=== PATIENT | female | born 1950 | race Caucasian/White ===

== ENCOUNTER → 2016-09-24 | Outpatient (CLI) | payer BC ==
[~2016-09-24] MED LIST: CITA20TA4 PO; PRM625 PO; SIMV20TA5 PO
--- NOTE | 2016-09-24 11:00 | DIAGNOSTIC IMAGING REPORT ---
RIGHT FOOT MIN 3 VIEWS ROUTINE CLINICAL HISTORY: 65 years-old Female presenting with RIGHT FOOT PAIN. TECHNIQUE: Frontal, oblique, and lateral views of the right foot were obtained. COMPARISON: None. FINDINGS: Osseous fragments along the lateral aspect of the calcaneocuboid articulation consistent with an os peroneum. Os naviculare also noted. No acute fracture, malalignment, or radiopaque foreign body. IMPRESSION: 1. No acute osseous injury of the right foot. Electronically signed by: Jack Adrian M.D. 09/24/2016 10:59 AM Dictated Date/Time: 09/24/2016 10:55 AM
== END | disposition home or self-care (01) ==
LOC: C.RAD1850 10:22
PROVIDERS: ATTEND Hospitalist
DX: S97.109A Crushing injury of unspecified toe(s), initial encounter (principal); X58.XXXA Exposure to other specified factors, initial encounter

== ENCOUNTER 2022-07-27 09:31 | Inpatient (IN) ==
[2022-07-27] MEDS ORDERED: HYDROmorphone INJ 0.5 MG/0.5 ML SYR IV PRN (10:30)
[2022-07-27] MEDS ORDERED: HYDROmorphone INJ 1 MG/ML SYRINGE IV PRN (10:30)
[2022-07-27] MEDS ORDERED: ONDANSETRON INJ 2 MG/ML 2 ML VIAL IV PRN ×2 (10:35→13:39)
--- NOTE | 2022-07-27 10:41 | History & Physical Report ---
Date of Service July 27, 2022 Assessment & Plan (1) RUQ pain: Plan: RUQ with meals, Suspected choledocholithiasis vs cholecystitis - OSH Labs: AST 91, ALT 193, Lipase 53, Sodium 142, Potassium 4.0, WBC 4.6, PLT 249, High-sensitivity troponin 9 -CTA/P: Multiple low-density lesions of the liver measuring up to 1.7cm in size without abnormalities of the spleen. Adrenals and pancreas are within normal limits. Mild prominence of the gallbladder wall and questionable gallbladder sludge. Given the discordance between the exam and an ultrasound performed same day as well as patient's exam, recommend consideration of HIDA for further evaluation. Small pericardial effusion. Multiple hepatic cysts. -Ultrasoundabdomen limited: Impression: Multiple cysts noted in the left lobe of the liver. Exam is otherwise unremarkable. - Images being pushed to [facility] for internal read, pending transfer On admission: WBC 3.77, AST 47, ALT 107, bili 0.6, Cr 0.85 - HIDA pending - Surgery consulted, GI consulted - Zofran for nausea, scaled hydromorphone region manager for pain control. APAP deferred 2/2 transaminitis - Received rocephin daily x2 at OSH, got 1 dose of rocephin AM prior to transfer - Lyme/anaplasmosis pending given concurrent transaminitis and leukopenia. HTN - losartan 100mg IMMIGRATION LAW SPECIALIST held x2 days while NPO. Hold pending survical eval. - Adequate BP control - Hydralazine 2.5mg Q6H PRN for SBP >180 Pericardial Effusion - Mild, without hemodynamic compromise. Noted on CT-A/P - No hx chest pain, recent viral illness per pt - Echo pending given hx of valvular disease and effusion with unclear hx and records pending - Hs trop normal IMMIGRATION LAW SPECIALIST Anxiety - Well controlled, no longer on celexa DVT PPx: SCDs pendin surgical evaluation CODE: Full Diet: NPO, IVFM 125cc/hr Dispo: Med/surg (2) HTN (hypertension): (3) Lumbar stenosis: (4) Valvular insufficiency: (5) Transaminitis: Admission and Anticipated Discharge Date Admission Date: July 27, 2022 History of Present Illness Primary Care Provider: Arthur Jackson MD Lisa is a 71-year-old female with past medical history of hyperlipidemia and anxiety/depression who presented to [facility] with abdominal pain and was found to have elevated LFTs. Lipase was normal. By verbal report CT was concerning for cholecystitis without ductal dilation, gallbladder ultrasound did not show ductal dilation and was equivocal. MRCP and additional diagnostics/therapeutics were not available at [facility]. Patient was transferred to [facility] for ERCP and surgical services for treatment of suspected choledocholithiasis without pancreatic involvement. Had had intermittent RUQ pain in the past year, but generally hasn't been bad up until this past Saturday. +Vomiting even without nausea. Food worsens pain. RUQ worst, has some LUQ pain. No fevers, chills, sweats No chest pain or chest pressure. No shortness of breath/dyspnea BMs soft, brown. No black/blood. No cristopher colored stools Has mild valvular insufficiency for which she sees Dr. Mchugh [facility] w/ Dr. Tanner. No KS. No NSTEMI. No hx NSTEMI. Had back surgery for spinal stenosis w/ Dr. Navarrete in [place] last Oct, no problems. NOt on any blood thinners or aspirin like medications No renal problems/CKD No history of blood clots or bleeding Hx bowel slowdown/blockage. Not sure the cause, no prior hx of abdominal surgery. partial SBO was 20 years ago, and resolved with conservative care and no surgery. Medical History: Reviewed Medications: Reviewed Surgical History: Reviewed Family history: Reviewed. Lung cancer in mother in 70s with hx of smoking. Denies hx KS/stroke/heart disease/lung disease/thyroid disease/gallbladder disease Allergies: Reviewed. NKMA. Social History: No tobacco use, rare social ETOH use Code Status:Full code [place] lab review: AST 91, ALT 193 Lipase 53 Sodium 142 Potassium 4.0 WBC 4.6, PLT 249 High-sensitivity troponin 9 CT/ultrasound as below -CTA/P: Multiple low-density lesions of the liver measuring up to 1.7cm in size without abnormalities of the spleen. Adrenals and pancreas are within normal limits. Mild prominence of the gallbladder wall and questionable gallbladder sludge. Given the discordance between the exam and an ultrasound performed same day as well as patient's exam, recommend consideration of HIDA for further evaluation. Small pericardial effusion. Multiple hepatic cysts. -Ultrasoundabdomen limited: Impression: Multiple cysts noted in the left lobe of the liver. Exam is otherwise unremarkable. Allergies Allergy/AdvReac Type Severity Reaction Status Date / Time No Known Allergies Allergy Unverified 05/26/12 14:53 Home Medications Medication Instructions Recorded Confirmed Type atorvastatin 40 mg tablet 40 mg PO DAILY 07/27/22 07/27/22 History losartan 100 mg tablet 100 mg PO DAILY 07/27/22 07/27/22 History Past Med/Surg History Medical History HTN (hypertension) Valvular insufficiency Surgical History Status post lumbar spine surgery for decompression of spinal cord due to spinal stenosis, w/ hardware placement. Done @ [place] Social History Smoking Status: Never smoker Second Hand Exposure: No; Do You Dip or Chew Tobacco: No; Tobacco Cessation Education Requested by Patient: No Hx Alcohol Use: No Hx Substance Use: No Preferred Language: Moldovan Communication Ability: Effective Dining Room Captain Required: No Beliefs That Will Affect Care: None Current Living Situation: Alone Other Information That Helps Us Care for You: No Feels Safe at Home: Yes Safety Concerns: Feels Safe At This Time Assistive Devices: Hearing Aid - Left Review of Systems Review of Systems: All systems reviewed & are unremarkable except as noted in HPI & below Physical Exam Physical Exam: General: A&Ox3. NAD. Cooperative. HEENT: Atraumatic, normocephalic. Vision/hearing grossly intact. Pulm: CTAB A&P. -wheezes, -rales, -rhonchi. Symmetrical chest rise. No increased work of breathing. No respiratory distress. Cardiac: RRR, +sm. Radial pulses intact and symmetrical. Abdominal: TTP at RUQ > LUQ, no lower abd tenderness, no guarding/rebound, abd soft. Code Status & VTE Plan VTE Prophylaxis Plan VTE Prophylaxis will be ordered: Yes PG Care Time/CCT Total # of Minutes Spent Total Time Spent with Patient: Total time spent is greater than 50% in coordination of care (as documented) at patient's floor/unit and/or counseling patient: Coding Level of Care Code 41245 INT INP/OBS CARE 2/55MIN Diagnoses RUQ pain R10.11 HTN (hypertension) I10 Lumbar stenosis M48.061 Valvular insufficiency I38 Transaminitis R74.01
[2022-07-27 11:09] LABS: Basophils # (auto) 0.06 K/uL (0-0.2); Basophils % (auto) 1.6 %; Eosinophils # (auto) 0.07 K/uL (0-0.50); Eosinophils % (auto) 1.9 %; Hematocrit (blood only) 41.4 % (37.0-47.0); Hemoglobin 13.3 g/dl (12.0-16.0); Immature Granulocytes # (auto) 0.01 K/uL (0.01-0.20); Immature Granulocytes % (auto) 0.3 %; Lymphocytes # (auto) 1.26 K/uL (1.2-3.4); Lymphocytes % (auto) 33.4 %; Mean Corpuscular Hemoglobin 29.5 pg (25.0-34.0); Mean Corpuscular Hgb Conc 32.1 g/dL (32.0-36.0); Mean Corpuscular Volume 91.8 fL (80.0-100.0); Mean Platelet Volume 10.1 fL (9.4-12.4); Monocytes # (auto) 0.33 K/uL (0.11-0.59); Monocytes % (auto) 8.8 %; Neutrophils # (auto) 2.04 K/uL (1.40-6.50); Platelet Count 272 K/uL (130-400); RDW Coefficient of Variation 12.7 % (11.5-14.5); RDW Standard Deviation 42.5 fL (36.4-46.3); Red Blood Count 4.51 M/uL (4.20-5.40); White Blood Count 3.77 K/ul (4.8-10.8)
[2022-07-27] MEDS ORDERED: PNEUMOCOCCAL POLYSACCHARIDES 25 MCG/0.5 ML VIAL/SYR IM ONE (11:15)
[2022-07-27 11:25] LABS: Albumin Globulin Ratio 1.8 (0.9-2); Albumin Level 4.1 gm/dl (3.4-5.0); BUN Creatinine Ratio 18.8 (10-20); Bilirubin,Total 0.6 mg/dl (0.2-1.0); Calcium 9.6 mg/dl (8.6-10.3); Est GFR (Non-African American) 69.9 ml/min; Globulin 2.3 gm/dl (2.5-4.0); Potassium 4.6 mmol/L (3.5-5.1); Total Protein 6.4 gm/dl (6.0-8.3)
[2022-07-27 11:36] LABS: Partial Thromboplastin Ratio 0.9; Partial Thromboplastin Time 24.5 Seconds (21.0-31.0); Prothrombin Time 10.9 Seconds (9.0-12.0)
--- NOTE | 2022-07-27 12:01 | Gastrointestinal Consultation ---
Date of Consultation July 27, 2022 Assessment & Plan (1) RUQ pain: 71 year old female with history of HTN, lumbar stenosis transferred from outside hospital for ERCP and general surgery evaluation. Thers is report of biliary sludge, AST/ALT elevation 47/107 w/ normal Tbili NPO Plan for EUS +/- ERCP IVF maintenance Analgesia PRN Antiemetics PRN We appreciate assistance in the management of any serological abnormality and corrections to include: hemoglobin >7, INR <2, platelets >50,000, potassium levels >3.5 but <5.3, and sodium levels within 5 points of the reference range prior to endoscopic evaluation. Thank you for allowing us to participate in the care of this patient. Please call with any acute changes, questions or concerns. Please see addendum below with additional recommendation from my supervising physician. Supervising Physician Co-Signing Physician Notes A was already EVALUATED THE PATIENT. WE WERE CONSULTED WITH A HISTORY OF ABDOMINAL DISCOMFORT AND MILD ELEVATION OF HER LIVER ASSOCIATED ENZYMES. UPPER ENDOSCOPY AND EUS with POSSIBLE ERCP have been requested DUE TO SUSPECTED CHOLEDOCHOLITHIASIS. The patient has a history of abdominal pain which has been waxing and waning for the past week. She was found to have evidence of cholelithiasis on imaging of her liver enzymes. Physical examination No scleral icterus Right upper quadrant tenderness noted Impression: Patient presents for evaluation of abdominal discomfort and nausea found to have elevated liver enzymes and cholelithiasis. Further evaluation for retained common bile duct stones has been requested. We will proceed with upper endoscopy endoscopic ultrasound and possible ERCP today. We have discussed the risks to include bleeding infection perforation pain pancreatitis and failed biliary cannulation. History of Present Illness Reason for Consultation: request for ERCP Requesting Physician: Zeeshan Attending Physician: Jack Byers MD History of Present Illness 71 year old female with history of HTN, lumbar stenosis transferred from outside hospital for ERCP and general surgery evaluation. Pt was seen evaluated, rajan treviewed. Family at bedside. She notes episode upper abd pain and RUQ pain x 1 year. However, this become persistent and severe about 4/5 days ago. Associated with food aversion, nausea/vomiting. Bilious emesis. No black or bloody emesis. No fever, chills, CP, SOB. Denies dark urine. Denies cristopher colored stools. CT at outside hospital reported as GB prominence and sludge ABD US from outside hospital reported as hepatic cysts She was ordered a MRCP and JOVAN Siddiqi personally cancelled MRCP. No ETOH No supplements No anticoagulations Tbili 0.6 AST 47 ALT 107 ALKP 80 Lipase 13 Allergies Allergy/AdvReac Type Severity Reaction Status Date / Time No Known Allergies Allergy Unverified 05/26/12 14:53 Home Medications Medication Instructions Recorded Confirmed Type atorvastatin 40 mg tablet 40 mg PO DAILY 07/27/22 07/27/22 History losartan 100 mg tablet 100 mg PO DAILY 07/27/22 07/27/22 History Patient History Medical History HTN (hypertension) Valvular insufficiency Surgical History Status post lumbar spine surgery for decompression of spinal cord due to spinal stenosis, w/ hardware placement. Done @ [place] Social History Smoking Status: Never smoker Second Hand Exposure: No; Do You Dip or Chew Tobacco: No; Tobacco Cessation Education Requested by Patient: No Hx Alcohol Use: No Hx Substance Use: No Preferred Language: Georgian Communication Ability: Effective Exhibit Carpenter Required: No Beliefs That Will Affect Care: None Current Living Situation: Alone Other Information That Helps Us Care for You: No Feels Safe at Home: Yes Safety Concerns: Feels Safe At This Time Assistive Devices: Hearing Aid - Left Review of Systems Review of Systems: All systems reviewed & are unremarkable except as noted in HPI & below Physical Exam Constitutional: WD/WN, vitals as above Respiratory: normal respiratory effort, lungs clear to auscultation Cardiovascular: RRR, no murmur, no edema Gastrointestinal (Abdomen): Inspection/Auscultation: abdomen normal to inspection and normal bowel sounds Percussion/Palpation: + abdomen tender (upper abd r>L) and abdomen soft Skin: no rashes, warm and dry Results & Data Vital Signs (Past 12 Hours) Vital Signs Temp Pulse Resp BP Pulse Ox O2 Del Method 07/27/22 10:31 36.6 C 69 16 154/79 H 97 Room Air 07/27/22 10:31 36.6 C 16 154/79 H 97 Room Air Laboratory Results 07/27/22 07/27/22 07/27/22 Range/Units 11:28 11:28 11:28 WBC (4.8-10.8) K/ul RBC (4.20-5.40) M/uL Hgb (12.0-16.0) g/dl Hct (37.0-47.0) % MCV (80.0-100.0) fL MCH (25.0-34.0) pg MCHC (32.0-36.0) g/dL RDW Std Deviation (36.4-46.3) fL RDW Coeff of Jackie (11.5-14.5) % Plt Count (130-400) K/uL MPV (9.4-12.4) fL Immature Gran % (Auto) % Neut % (Auto) % Lymph % (Auto) % [place] % (Auto) % Eos % (Auto) % Baso % (Auto) % Neut # (Auto) (1.40-6.50) K/uL Lymph # (Auto) (1.2-3.4) K/uL [place] # (Auto) (0.11-0.59) K/uL Eos # (Auto) (0-0.50) K/uL Baso # (Auto) (0-0.2) K/uL Immature Gran # (Auto) (0.01-0.20) K/uL PT (9.0-12.0) Seconds INR (0.9-1.1) APTT (21.0-31.0) Seconds PTT Ratio Sodium (136-145) mmol/L Potassium (3.5-5.1) mmol/L Chloride (98-107) mmol/L Carbon Dioxide (21-32) mmol/L Anion Gap (3-11) BUN (6-23) mg/dl Creatinine (0.6-1.2) mg/dl Est Cr Clr Drug Dosing ml/min Est GFR ( Amer) ml/min Est GFR (Non-Af Amer) ml/min BUN/Creatinine Ratio (10-20) Glucose (70-99(Fasting)) mg/dl Calcium (8.6-10.3) mg/dl Total Bilirubin (0.2-1.0) mg/dl AST (13-39) U/L ALT (7-52) U/L Alkaline Phosphatase (34-104) U/L Total Protein (6.0-8.3) gm/dl Albumin (3.4-5.0) gm/dl Globulin (2.5-4.0) gm/dl Albumin/Globulin Ratio (0.9-2) Lipase (11-82) U/L Anaplasma Smear Pending A. phagocytophilum DNA Pending Lyme Disease IgG Ab Pending Lyme Disease IgM Ab Pending 07/27/22 07/27/22 07/27/22 Range/Units 10:41 10:41 10:41 WBC 3.77 L (4.8-10.8) K/ul RBC 4.51 (4.20-5.40) M/uL Hgb 13.3 (12.0-16.0) g/dl Hct 41.4 (37.0-47.0) % MCV 91.8 (80.0-100.0) fL MCH 29.5 (25.0-34.0) pg MCHC 32.1 (32.0-36.0) g/dL RDW Std Deviation 42.5 (36.4-46.3) fL RDW Coeff of Jackie 12.7 (11.5-14.5) % Plt Count 272 (130-400) K/uL MPV 10.1 (9.4-12.4) fL Immature Gran % (Auto) 0.3 % Neut % (Auto) 54.0 % Lymph % (Auto) 33.4 % [place] % (Auto) 8.8 % Eos % (Auto) 1.9 % Baso % (Auto) 1.6 % Neut # (Auto) 2.04 (1.40-6.50) K/uL Lymph # (Auto) 1.26 (1.2-3.4) K/uL [place] # (Auto) 0.33 (0.11-0.59) K/uL Eos # (Auto) 0.07 (0-0.50) K/uL Baso # (Auto) 0.06 (0-0.2) K/uL Immature Gran # (Auto) 0.01 (0.01-0.20) K/uL PT 10.9 (9.0-12.0) Seconds INR 1.0 (0.9-1.1) APTT 24.5 (21.0-31.0) Seconds PTT Ratio 0.9 Sodium 141 (136-145) mmol/L Potassium 4.6 (3.5-5.1) mmol/L Chloride 110 H (98-107) mmol/L Carbon Dioxide 29 (21-32) mmol/L Anion Gap 2 L (3-11) BUN 16 (6-23) mg/dl Creatinine 0.85 (0.6-1.2) mg/dl Est Cr Clr Drug Dosing 69.0 ml/min Est GFR ( Amer) 81.0 ml/min Est GFR (Non-Af Amer) 69.9 ml/min BUN/Creatinine Ratio 18.8 (10-20) Glucose 95 (70-99(Fasting)) mg/dl Calcium 9.6 (8.6-10.3) mg/dl Total Bilirubin 0.6 (0.2-1.0) mg/dl AST 47 H (13-39) U/L ALT 107 H (7-52) U/L Alkaline Phosphatase 80 (34-104) U/L Total Protein 6.4 (6.0-8.3) gm/dl Albumin 4.1 (3.4-5.0) gm/dl Globulin 2.3 L (2.5-4.0) gm/dl Albumin/Globulin Ratio 1.8 (0.9-2) Lipase 13 (11-82) U/L Anaplasma Smear A. phagocytophilum DNA Lyme Disease IgG Ab Lyme Disease IgM Ab
--- NOTE | 2022-07-27 12:21 | Surgery Consultation ---
This case was discussed with the PA. I agree with the plan. Date of Consultation July 27, 2022 Assessment & Plan (1) RUQ pain: This is a 71yF with a PMH , HTN, valvular insufficiency and spinal surgery who presents to the [facility] as a transfer from [place] with concern for cholecystitis/?choledocholithiasis. Patient states she has been dealing with RUQ abdominal pain over the last week or so that has progressively been worsening, associated with nausea/vomiting. At [place] apparently she had an US that did not report on gallbladder abnormalities and a CT a/p that showed questionable gallbladder sludge. Today's labs show WBC 3.7, Tb:0.6, AST and ALT mildly elevated at 47 and 107 respectively. Vital signs are stable. On exam abdomen soft, non distended, with mild discomfort in the RUQ/epigastric regions. originally ordered for MRCP, but after GI evaluation they are planning on taking her today for ERCP. We will follow up on ERCP results prior to making a decision on surgical intervention. If ERCP negative can still consider HIDA scan at some point. Will follow. History of Present Illness Attending Physician: Jack Byers MD History of Present Illness This is a 71yF with a PMH , HTN, valvular insufficiency and spinal surgery who presents to the [facility] as a transfer from [place] with concern for cholecystitis/?choledocholithiasis. Patient states she has been dealing with RUQ abdominal pain over the last week or so that has progressively been worsening. Since the weekend she has developed nausea/vomiting after eating. She rates her pain a 5-6/10 at it's worst that is flared up with eating, but has been dealing with a constant pain despite that. At [place] apparently she had an US that did not report on gallbladder abnormalities and a CT a/p that showed questionable gallbladder sludge. Patient states the pain would happen after any meal, not specific to fatty/greasy foods. She currently denies any fevers/chills, CP/SOB, or change in bowel habits. She is feeling a bit better without nausea/vomiting and pain controlled not received any recent medications. PSH of . No history of alcohol use. Allergies Allergy/AdvReac Type Severity Reaction Status Date / Time No Known Allergies Allergy Unverified 05/26/12 14:53 Home Medications Medication Instructions Recorded Confirmed Type atorvastatin 40 mg tablet 40 mg PO DAILY 07/27/22 07/27/22 History losartan 100 mg tablet 100 mg PO DAILY 07/27/22 07/27/22 History Patient History Medical History HTN (hypertension) Valvular insufficiency Surgical History Status post lumbar spine surgery for decompression of spinal cord due to spinal stenosis, w/ hardware placement. Done @ [place] Social History Smoking Status: Never smoker Second Hand Exposure: No; Do You Dip or Chew Tobacco: No; Tobacco Cessation Education Requested by Patient: No Hx Alcohol Use: No Hx Substance Use: No Preferred Language: Bulgarian Communication Ability: Effective Director Of Business Development Required: No Beliefs That Will Affect Care: None Current Living Situation: Alone Other Information That Helps Us Care for You: No Feels Safe at Home: Yes Safety Concerns: Feels Safe At This Time Assistive Devices: Hearing Aid - Left Review of Systems Constitutional: no fever and no chills Respiratory: no dyspnea Cardiovascular: no chest pain Gastrointestinal: + abdominal pain (epigastric and RUQ), + nausea and + vomiting; no change in bowel habits Physical Exam Physical Exam: awake/alert Constitutional: well developed, well nourished and comfortable; no acute distress Respiratory: normal respiratory effort Cardiovascular: Rate/Rhythm: regular rate Gastrointestinal (Abdomen): Inspection/Auscultation: + abdominal surgical scar (midline infra-umbilical scar from ); abdomen not distended Percu ssion/Palpation: + abdomen tender (mild discomfort noted in the epigastric and RUQ regions) and abdomen soft; no guarding Results & Data Vital Signs (Past 12 Hours) Vital Signs Temp Pulse Resp BP Pulse Ox O2 Del Method 07/27/22 10:31 36.6 C 69 16 154/79 H 97 Room Air 07/27/22 10:31 36.6 C 16 154/79 H 97 Room Air PG Care Time/CCT Total # of Minutes Spent Total Time Spent with Patient: Total time spent is greater than 50% in coordination of care (as documented) at patient's floor/unit and/or counseling patient: Coding Level of Care Code 51973 INT INP/OBS CARE MIN Diagnoses RUQ pain R10.11
[2022-07-27 12:34] LABS: Lyme Ab IgG w/WB Rflx Negative (Negative)
[2022-07-27 12:38] LABS: Lyme Ab IgM w/WB Rflx Positive (Negative)
[2022-07-27] MEDS: PLASMA-LYTE A 1,000 ML IV SCH (12:41)
[2022-07-27] MEDS ORDERED: ATROPINE SULFATE 0.1 MG/ML 10ML SYR IV PRN (13:39)
[2022-07-27] MEDS ORDERED: PROMETHAZINE HCL 6.25 MG in SODIUM CHLORIDE 0.9% 50 ML IV PRN (13:39)
[2022-07-27] MEDS ORDERED: fentaNYL citrate PF 100 MCG/2 ML VIAL IV PRN (13:39)
[2022-07-27] MEDS ORDERED: ePHEDrine sulfate 50 MG/ML AMP IV PRN (13:39)
--- NOTE | 2022-07-27 13:39 | Anesthesiology Consultation ---
Date of Service July 27, 2022 Assessment & Plan Chart Review Chart Review: Acceptable Risk for Surgery and Patient NOT seen in Pre Admission Testing Consults Requested none ASA ASA2 Proposed Anesthesia Anesthesia Type: General Risk / Benefits Reviewed With: PT / POA / Parent / Guardian, Accepts Plan and Informed Consent Obtained History Surgery Operation Date: 07/27/22 11:30 Proposed Procedures p Endoscopic Retrograde Cholangiopancreato - Pooja Barnard, DO Height/Weight Height: 5 ft 7 in Weight: 82.5 kg Allergies Allergy/AdvReac Type Severity Reaction Status Date / Time No Known Allergies Allergy Unverified 05/26/12 14:53 Medications Home Medications Medication Instructions Recorded Confirmed Last Taken atorvastatin 40 mg tablet 40 mg PO DAILY 07/27/22 07/27/22 07/24/22 losartan 100 mg tablet 100 mg PO DAILY 07/27/22 07/27/22 07/24/22 Active Medications Generic Name Dose Route Start Last Admin Trade Name Freq PRN Reason Stop Dose Admin Parenteral Electrolytes 1,000 mls @ 125 mls/hr 07/27/22 10:30 07/27/22 12:41 Plasma-Lyte A Ph 7.4 IV 08/26/22 10:29 125 mls/hr .Q8H CONNOR Administration NPO Date Last Intake of Fluids: 07/26/22 Time Last Intake of Fluids: 21:00 Date Last Intake of Solids: 07/26/22 Time Last Intake of Solids: 21:00 Past Medical History Medical History HTN (hypertension) Valvular insufficiency Exercise / Class Metabolic Activity II 4-5 Yardwork/Stairs/Walk up hill Past Surgical History Surgical History Status post lumbar spine surgery for decompression of spinal cord due to spinal stenosis, w/ hardware placement. Done @ [place] Past Anesthesia History No Hx of Anesthesia Complications and No Family Hx of Anesthesia Complications History of PONV No Hx of PONV and No Hx of Motion Sickness Social History Smoking Status: Never smoker Do You Dip or Chew Tobacco: No Hx Alcohol Use: No Hx Substance Use: No Physical Exam Vital Signs Last Vital Signs Temp 36.6 C 07/27/22 13:13 Pulse 67 07/27/22 13:13 Resp 18 07/27/22 13:13 BP 168/88 H 07/27/22 13:13 Pulse Ox 100 07/27/22 13:13 O2 Del Method Room Air 07/27/22 13:13 ENMT Mouth: no dentition abnormality Thyromental Distance: > or= 3.5 Finger Breadths Mallampati Class: II Neck normal visual inspection Respiratory normal respiratory effort Auscultation: lungs clear to auscultation bilaterally Cardiovascular Rate/Rhythm: regular rate and regular rhythm Psychiatric Orientation: alert Testing Laboratory Results 07/27/22 10:41 07/27/22 10:41 PT 10.9 Seconds (9.0-12.0) 07/27/22 10:41 INR 1.0 (0.9-1.1) 07/27/22 10:41 APTT 24.5 Seconds (21.0-31.0) 07/27/22 10:41
[2022-07-27] MEDS ORDERED: PROPOFOL IV EMULSION 10 MG/ML 20 ML VIAL IV ONE (14:03)
[2022-07-27] MEDS ORDERED: fentaNYL citrate PF 100 MCG/2 ML VIAL ONE (14:04)
[2022-07-27] MEDS ORDERED: MIDAZOLAM HCL 1 MG/ML 2ML VIAL ONE (14:04)
--- NOTE | 2022-07-27 14:21 | GI REPORT ---
Patient Name: Lisa Alcala Procedure Date: 07/27/2022 2:14 PM Date of : 1950 Admit Type: Inpatient Age: 71 Gender: Female Attending MD: Pooja Barnard DO, Procedure: Upper GI endoscopy Providers: Pooja Barnard DO Referring MD: Jack Byers Iv, M.d. Indications: Epigastric abdominal pain, Abdominal pain in the right upper quadrant Medicines: Monitored Anesthesia Care Complications: No immediate complications. Estimated blood loss: Minimal. Estimated Blood Loss: Estimated blood loss was minimal. Procedure: Pre-Anesthesia Assessment: - Prior to the procedure, a History and Physical was performed, and patient medications, allergies and sensitivities were reviewed. The patient's tolerance of previous anesthesia was reviewed. - The risks and benefits of the procedure and the sedation options and risks were discussed with the patient. All questions were answered and informed consent was obtained. - Patient identification and proposed procedure were verified prior to the procedure by the physician, the nurse and the lute packer or applier. The procedure was verified in the procedure room. - Pre-procedure physical examination revealed no contraindications to sedation. - ASA Grade Assessment: II - A patient with mild systemic disease. - After reviewing the risks and benefits, the patient was deemed in satisfactory condition to undergo the procedure. - The anesthesia plan was to use monitored anesthesia care (MAC). - Immediately prior to administration of medications, the patient was re-assessed for adequacy to receive sedatives. - The heart rate, respiratory rate, oxygen saturations, blood pressure, adequacy of pulmonary ventilation, and response to care were monitored throughout the procedure. - The physical status of the patient was re-assessed after the procedure. After obtaining informed consent, the endoscope was passed under direct vision. Throughout the procedure, the patient's blood pressure, pulse, and oxygen saturations were monitored continuously. The Endoscope was introduced through the mouth, and advanced to the third part of duodenum. The upper GI endoscopy was accomplished without difficulty. The patient tolerated the procedure well. Findings: The examined esophagus was normal. The Z-line was regular and was found 37 cm from the incisors. The entire examined stomach was normal. The examined duodenum was normal. Impression: - Normal esophagus. - Z-line regular, 37 cm from the incisors. - Normal stomach. - Normal examined duodenum. - No specimens collected. Recommendation: - Perform an upper endoscopic ultrasound (UEUS) today. Pooja Barnard D.O. Pooja Barnard, DO 07/27/2022 2:20:49 PM This report has been signed electronically. Note Initiated On: 07/27/2022 2:14 PM Number of Addenda: 0 I attest to the content of the Intraoperative Record and orders documented therein, exceptions below {[id number]}
--- NOTE | 2022-07-27 14:38 | GI REPORT ---
Patient Name: Lisa Alcala Procedure Date: 07/27/2022 2:20 PM Date of : 1950 Admit Type: Inpatient Age: 71 Gender: Female Attending MD: Pooja Barnard DO, Procedure: Upper EUS Providers: Pooja Barnard DO Referring MD: Jack Byers Md Indications: Elevated liver enzymes, Suspected choledocholithiasis Medicines: Monitored Anesthesia Care Complications: No immediate complications. Estimated blood loss: Minimal. Estimated Blood Loss: Estimated blood loss was minimal. Procedure: Pre-Anesthesia Assessment: - Prior to the procedure, a History and Physical was performed, and patient medications, allergies and sensitivities were reviewed. The patient's tolerance of previous anesthesia was reviewed. - The risks and benefits of the procedure and the sedation options and risks were discussed with the patient. All questions were answered and informed consent was obtained. - Patient identification and proposed procedure were verified prior to the procedure by the physician, the nurse and the electromechanical equipment assembler. The procedure was verified in the procedure room. - Pre-procedure physical examination revealed no contraindications to sedation. - ASA Grade Assessment: II - A patient with mild systemic disease. - After reviewing the risks and benefits, the patient was deemed in satisfactory condition to undergo the procedure. - The anesthesia plan was to use monitored anesthesia care (MAC). - Immediately prior to administration of medications, the patient was re-assessed for adequacy to receive sedatives. - The heart rate, respiratory rate, oxygen saturations, blood pressure, adequacy of pulmonary ventilation, and response to care were monitored throughout the procedure. - The physical status of the patient was re-assessed after the procedure. After obtaining informed consent, the endoscope was passed under direct vision. Throughout the procedure, the patient's blood pressure, pulse, and oxygen saturations were monitored continuously. The Endosonoscope was introduced through the mouth, and advanced to the third part of duodenum. The upper EUS was accomplished without difficulty. The patient tolerated the procedure well. Findings: ENDOSONOGRAPHIC FINDING: : There was no sign of significant endosonographic abnormality in the ampulla. No pathologic lymphadenopathy and no masses were identified. Minimal hyperechoic material consistent with sludge was visualized endosonographically in the gallbladder. The gallbladder wall was mildly thickened to 2.5 mm. There was no sign of significant endosonographic abnormality in the common bile duct. The maximum diameter of the duct was 5 mm. No stones, no biliary sludge and ducts of normal caliber were identified. There was no sign of significant endosonographic abnormality in the visualized portion of the liver. Homogeneous parenchyma and no focal pathology were identified. There was no sign of significant endosonographic abnormality in the entire pancreas. The pancreatic duct measured up to 2 mm in diameter. No masses, no cysts. No lymphadenopathy seen. There was no sign of significant endosonographic abnormality in the left adrenal gland. No adrenal gland enlargement was identified. Impression: - There was no sign of significant pathology in the ampulla. - Hyperechoic material consistent with sludge was visualized endosonographically in the gallbladder. - There was no sign of significant pathology in the common bile duct. - There was no evidence of significant pathology in the visualized portion of the liver. - There was no sign of significant pathology in the entire pancreas. - Endosonographic images of the left adrenal gland were unremarkable. - No specimens collected. Recommendation: - [facility]. - Observe patient's clinical course. - Cholecystectomy per [facility]. Pooja Barnard D.O. Pooja Barnard, 07/27/2022 2:38:27 PM This report has been signed electronically. Note Initiated On: 07/27/2022 2:20 PM Number of Addenda: 0 I attest to the content of the Intraoperative Record and orders documented therein, exceptions below {[id number]}
--- NOTE | 2022-07-27 14:41 | Post Operative Brief Note ---
Immediate Post Op Note v1 Date of Surgery July 27, 2022 Pre & Post Diagnosis Operation Date: 07/27/22 11:30 Pre-Op Diagnosis: SUSPECT Choledocholithiasis Post-Op Diagnosis: normal upper endoscopy Normal common bile duct Normal pancreas mild gallbladder wall thickening / mild amount of gallbladder sludge I identified the patient and participated in the time-out.: Yes Procedure Operation Date: 07/27/22 11:30 Actual Procedures p Esophagogastroduodenoscopy - Pooja Barnard DO s Endoscopic Ultrasonography Upper - Pooja Barnard DO Surgeon Pooja Barnard DO Gate Supervisor none Estimated Blood Loss 0 Findings Consistent with Post-Op Diagnosis
--- NOTE | 2022-07-27 14:42 | Communication Note ---
Date of Service: July 27, 2022 The patient underwent upper endoscopy and endoscopic ultrasound this afternoon. The upper endoscopy was notable for no evidence of peptic ulcer disease. The endoscopic ultrasound was notable for a normal-appearing common bile duct and pancreas. There was a small amount of sludge and minimal gallbladder wall thickening to 2.5 mm. Recommendations general surgery to evaluate patient to determine if they need cholecystectomy Call with questions or concerns GI to sign off
[2022-07-27] MEDS ORDERED: DEXAMETHASONE SOD INJ 4 MG/ML VIAL ONE (14:49)
[2022-07-27] MEDS ORDERED: ONDANSETRON INJ 2 MG/ML 2 ML VIAL ONE (14:49)
--- NOTE | 2022-07-27 15:16 | Anesthesiology Progress Note ---
Date of Service July 27, 2022 Anesthesia Post Procedure Vital Signs Vital Signs: Temp Pulse Pulse Resp BP Pulse Ox O2 Del Method 07/27/22 15:00 36.5 C 62 16 130/68 97 Room Air 07/27/22 14:50 64 14 137/75 96 Room Air 07/27/22 14:41 36.6 C 68 17 121/56 L 100 Nasal Cannula 07/27/22 13:13 36.6 C 67 18 168/88 H 100 Room Air 07/27/22 10:31 36.6 C 69 16 154/79 H 97 Room Air 07/27/22 10:31 36.6 C 16 154/79 H 97 Room Air O2 Flow Rate 07/27/22 15:00 07/27/22 14:50 07/27/22 14:41 3 07/27/22 13:13 07/27/22 10:31 07/27/22 10:31 Transfer of Care Handoff Completed per policy Notes Mental Status: alert / awake / arousable Patient Amnestic to Procedure: Yes Nausea / Vomiting: adequately controlled Pain: adequately controlled Airway Patency, RR, SpO2: stable & adequate BP & HR: stable & adequate Hydration State: stable & adequate Anesthetic Complications: no major complications apparent
--- NOTE | 2022-07-27 15:39 | Electrocardiogram Report ---
Test Reason : Blood Pressure : / mmHG Vent. Rate : 061 BPM Atrial Rate : 061 BPM P-R Int : 132 ms QRS Dur : 086 ms QT Int : 412 ms P-R-T Axes : 059 050 032 degrees QTc Int : 414 ms Normal sinus rhythm Normal ECG No previous ECGs available Confirmed by Bird Urena ([id number]) on 07/27/2022 3:38:56 PM Referred By: REFERRED SELF Confirmed By:Williams Urena
[2022-07-28] MEDS: PLASMA-LYTE A 1,000 ML IV SCH ×2 (00:32→08:15)
[2022-07-28] MEDS ORDERED: Nursing to Pharmacy Communication SCH (00:45)
--- NOTE | 2022-07-28 05:35 | Surgery Progress Note ---
Date of Service July 28, 2022 Assessment & Plan (1) RUQ pain: Plan: Patient has been admitted on the hospitalist service and on antibiotics. No leukocytosis, afebrile. We recommend proceeding as follows: The patient did undergo upper endoscopy and endoscopic ultrasound by gastroenterology on 07/27/2022. Upper endoscopy did not reveal any peptic ulcer disease. Endoscopic ultrasound showed a normal-appearing common bile duct with a small amount of sludge and minimal gallbladder wall thickening. As there is no definitive evidence of cholecystitis on GI evaluation a HIDA scan has been ordered which is pending. Additional recommendations will be based on HIDA scan. Continue analgesics as needed, would recommend NSAIDs to help with any inflammation (patient should take with food for oral dosing). Continue antiemetics as needed Continue IV fluid for hydration Transaminases decreasing, AST returned to normal, ALT decreasing. -Patient has wanted to consider being discharged home and following up as an outpatient for cholecystectomy as her symptoms are resolving. She may be started on clear liquids this am. If she tolerates, she may be advanced to low fat, no dairy and if this is tolerated well she may be discharged on oral antibiotics and NSAIDs once daily for the next 5 days (with food) with the plan to follow up with me in the office next week. Admission and Anticipated Discharge Date Admission Date: July 27, 2022 Subjective The patient is currently resting comfortably in bed. She notes abdominal pain that was previously present has improved and at the present time does not report any pain at all. She denies any nausea or vomiting. She denies any bowel movement or flatus. Physical Exam Gastrointestinal (Abdomen): Bowel sounds are present. Abdomen is soft, nonrigid, nondistended. There very mild TTP noted with palpation and there is no rebound tenderness or guarding. Results & Data Vital Signs (Past 12 Hours) Vital Signs Temp Pulse Resp BP Pulse Ox O2 Del Method 07/28/22 04:30 36.3 C L 61 16 122/67 98 Room Air 07/27/22 22:06 36.8 C 65 16 115/61 97 Room Air 07/27/22 18:26 36.5 C 66 16 132/76 98 Room Air PG Care Time/CCT Total # of Minutes Spent Total Time Spent with Patient: Total time spent is greater than 50% in coordination of care (as documented) at patient's floor/unit and/or counseling patient: Coding Level of Care Code 27573 SUB INP/OBS CARE 04/04MIN Diagnoses RUQ pain R10.11
[2022-07-28 06:39] LABS: Basophils # (auto) 0.03 K/uL (0-0.2); Basophils % (auto) 0.5 %; Hematocrit (blood only) 37.9 % (37.0-47.0); Hemoglobin 12.8 g/dl (12.0-16.0); Immature Granulocytes # (auto) 0.01 K/uL (0.01-0.20); Immature Granulocytes % (auto) 0.2 %; Lymphocytes # (auto) 0.98 K/uL (1.2-3.4); Lymphocytes % (auto) 15.8 %; Mean Corpuscular Hemoglobin 30.5 pg (25.0-34.0); Mean Corpuscular Hgb Conc 33.8 g/dL (32.0-36.0); Mean Corpuscular Volume 90.5 fL (80.0-100.0); Mean Platelet Volume 10.4 fL (9.4-12.4); Monocytes # (auto) 0.39 K/uL (0.11-0.59); Monocytes % (auto) 6.3 %; Neutrophils # (auto) 4.78 K/uL (1.40-6.50); Neutrophils % (auto) 77.2 %; Platelet Count 254 K/uL (130-400); RDW Coefficient of Variation 12.4 % (11.5-14.5); RDW Standard Deviation 40.7 fL (36.4-46.3); Red Blood Count 4.19 M/uL (4.20-5.40); White Blood Count 6.19 K/ul (4.8-10.8)
[2022-07-28 06:54] LABS: Albumin Globulin Ratio 1.7 (0.9-2); Albumin Level 3.6 gm/dl (3.4-5.0); BUN Creatinine Ratio 19.2 (10-20); Bilirubin,Total 0.6 mg/dl (0.2-1.0); Creatinine Clr Calc Pharmacy 80.3 ml/min; Est GFR (African American) 97.4 ml/min; Globulin 2.1 gm/dl (2.5-4.0); Potassium 4.2 mmol/L (3.5-5.1); Total Protein 5.7 gm/dl (6.0-8.3)
[2022-07-28] MEDS ORDERED: cefTRIAXone SODIUM 2,000 MG in DEXTROSE 5% 50 ML IV SCH (08:45)
--- NOTE | 2022-07-28 09:15 | Hospitalist Progress Note ---
Date of Service July 28, 2022 Assessment & Plan Admission and Anticipated Discharge Date Admission Date: July 27, 2022 Results & Data Results & Data Vital Signs (Past 12 Hours) Vital Signs Temp Pulse Pulse Resp BP Pulse Ox O2 Del Method 07/28/22 08:00 36.7 C 61 18 147/77 H 98 Room Air 07/28/22 04:30 36.3 C L 61 16 122/67 98 Room Air 07/27/22 22:06 36.8 C 65 16 115/61 97 Room Air Laboratory Results 07/28/22 07/28/22 07/27/22 Range/Units 05:51 05:51 11:28 WBC 6.19 (4.8-10.8) K/ul RBC 4.19 L (4.20-5.40) M/uL Hgb 12.8 (12.0-16.0) g/dl Hct 37.9 (37.0-47.0) % MCV 90.5 (80.0-100.0) fL MCH 30.5 (25.0-34.0) pg MCHC 33.8 (32.0-36.0) g/dL RDW Std Deviation 40.7 (36.4-46.3) fL RDW Coeff of Jackie 12.4 (11.5-14.5) % Plt Count 254 (130-400) K/uL MPV 10.4 (9.4-12.4) fL Immature Gran % (Auto) 0.2 % Neut % (Auto) 77.2 % Lymph % (Auto) 15.8 % Erie % (Auto) 6.3 % Eos % (Auto) 0.0 % Baso % (Auto) 0.5 % Neut # (Auto) 4.78 (1.40-6.50) K/uL Lymph # (Auto) 0.98 L (1.2-3.4) K/uL Erie # (Auto) 0.39 (0.11-0.59) K/uL Eos # (Auto) 0.00 (0-0.50) K/uL Baso # (Auto) 0.03 (0-0.2) K/uL Immature Gran # (Auto) 0.01 (0.01-0.20) K/uL PT (9.0-12.0) Seconds INR (0.9-1.1) APTT (21.0-31.0) Seconds PTT Ratio Sodium 141 (136-145) mmol/L Potassium 4.2 (3.5-5.1) mmol/L Chloride 109 H (98-107) mmol/L Carbon Dioxide 27 (21-32) mmol/L Anion Gap 5 (3-11) BUN 14 (6-23) mg/dl Creatinine 0.73 (0.6-1.2) mg/dl Est Cr Clr Drug Dosing 80.3 ml/min Est GFR ( Amer) 97.4 ml/min Est GFR (Non-Af Amer) 84.0 ml/min BUN/Creatinine Ratio 19.2 (10-20) Glucose 101 H (70-99(Fasting)) mg/dl Calcium 9.0 (8.6-10.3) mg/dl Total Bilirubin 0.6 (0.2-1.0) mg/dl AST 31 (13-39) U/L ALT 76 H (7-52) U/L Alkaline Phosphatase 71 (34-104) U/L Total Protein 5.7 L (6.0-8.3) gm/dl Albumin 3.6 (3.4-5.0) gm/dl Globulin 2.1 L (2.5-4.0) gm/dl Albumin/Globulin Ratio 1.7 (0.9-2) Lipase (11-82) U/L Anaplasma Smear A. phagocytophilum DNA Lyme Disease IgG Ab (Negative) Lyme IgG (Western Blot) Pending Lyme IgG 18 kDa Band Pending Lyme IgG 23 kDa Band Pending Lyme IgG 28 kDa Band Pending Lyme IgG 30 kDa Band Pending Lyme IgG 39 kDa Band Pending Lyme IgG 41 kDa Band Pending Lyme IgG 45 kDa Band Pending Lyme IgG 58 kDa Band Pending Lyme IgG 66 kDa Band Pending Lyme IgG 93 kDa Band Pending Lyme IgM Ab (WB) Pending Lyme Disease IgM Ab (Negative) Lyme IgM 23 kDa Band Pending Lyme IgM 39 kDa Band Pending Lyme IgM 41 kDa Band Pending 07/27/22 07/27/22 07/27/22 Range/Units 11:28 11:28 11:28 WBC (4.8-10.8) K/ul RBC (4.20-5.40) M/uL Hgb (12.0-16.0) g/dl Hct (37.0-47.0) % MCV (80.0-100.0) fL MCH (25.0-34.0) pg MCHC (32.0-36.0) g/dL RDW Std Deviation (36.4-46.3) fL RDW Coeff of Jackie (11.5-14.5) % Plt Count (130-400) K/uL MPV (9.4-12.4) fL Immature Gran % (Auto) % Neut % (Auto) % Lymph % (Auto) % Erie % (Auto) % Eos % (Auto) % Baso % (Auto) % Neut # (Auto) (1.40-6.50) K/uL Lymph # (Auto) (1.2-3.4) K/uL Erie # (Auto) (0.11-0.59) K/uL Eos # (Auto) (0-0.50) K/uL Baso # (Auto) (0-0.2) K/uL Immature Gran # (Auto) (0.01-0.20) K/uL PT (9.0-12.0) Seconds INR (0.9-1.1) APTT (21.0-31.0) Seconds PTT Ratio Sodium (136-145) mmol/L Potassium (3.5-5.1) mmol/L Chloride (98-107) mmol/L Carbon Dioxide (21-32) mmol/L Anion Gap (3-11) BUN (6-23) mg/dl Creatinine (0.6-1.2) mg/dl Est Cr Clr Drug Dosing ml/min Est GFR ( Amer) ml/min Est GFR (Non-Af Amer) ml/min BUN/Creatinine Ratio (10-20) Glucose (70-99(Fasting)) mg/dl Calcium (8.6-10.3) mg/dl Total Bilirubin (0.2-1.0) mg/dl AST (13-39) U/L ALT (7-52) U/L Alkaline Phosphatase (34-104) U/L Total Protein (6.0-8.3) gm/dl Albumin (3.4-5.0) gm/dl Globulin (2.5-4.0) gm/dl Albumin/Globulin Ratio (0.9-2) Lipase (11-82) U/L Anaplasma Smear See Comment A. phagocytophilum DNA Pending Lyme Disease IgG Ab Negative (Negative) Lyme IgG (Western Blot) Lyme IgG 18 kDa Band Lyme IgG 23 kDa Band Lyme IgG 28 kDa Band Lyme IgG 30 kDa Band Lyme IgG 39 kDa Band Lyme IgG 41 kDa Band Lyme IgG 45 kDa Band Lyme IgG 58 kDa Band Lyme IgG 66 kDa Band Lyme IgG 93 kDa Band Lyme IgM Ab (WB) Lyme Disease IgM Ab Positive A (Negative) Lyme IgM 23 kDa Band Lyme IgM 39 kDa Band Lyme IgM 41 kDa Band 07/27/22 07/27/22 07/27/22 Range/Units 10:41 10:41 10:41 WBC 3.77 L (4.8-10.8) K/ul RBC 4.51 (4.20-5.40) M/uL Hgb 13.3 (12.0-16.0) g/dl Hct 41.4 (37.0-47.0) % MCV 91.8 (80.0-100.0) fL MCH 29.5 (25.0-34.0) pg MCHC 32.1 (32.0-36.0) g/dL RDW Std Deviation 42.5 (36.4-46.3) fL RDW Coeff of Jackie 12.7 (11.5-14.5) % Plt Count 272 (130-400) K/uL MPV 10.1 (9.4-12.4) fL Immature Gran % (Auto) 0.3 % Neut % (Auto) 54.0 % Lymph % (Auto) 33.4 % Erie % (Auto) 8.8 % Eos % (Auto) 1.9 % Baso % (Auto) 1.6 % Neut # (Auto) 2.04 (1.40-6.50) K/uL Lymph # (Auto) 1.26 (1.2-3.4) K/uL Erie # (Auto) 0.33 (0.11-0.59) K/uL Eos # (Auto) 0.07 (0-0.50) K/uL Baso # (Auto) 0.06 (0-0.2) K/uL Immature Gran # (Auto) 0.01 (0.01-0.20) K/uL PT 10.9 (9.0-12.0) Seconds INR 1.0 (0.9-1.1) APTT 24.5 (21.0-31.0) Seconds PTT Ratio 0.9 Sodium 141 (136-145) mmol/L Potassium 4.6 (3.5-5.1) mmol/L Chloride 110 H (98-107) mmol/L Carbon Dioxide 29 (21-32) mmol/L Anion Gap 2 L (3-11) BUN 16 (6-23) mg/dl Creatinine 0.85 (0.6-1.2) mg/dl Est Cr Clr Drug Dosing 69.0 ml/min Est GFR ( Amer) 81.0 ml/min Est GFR (Non-Af Amer) 69.9 ml/min BUN/Creatinine Ratio 18.8 (10-20) Glucose 95 (70-99(Fasting)) mg/dl Calcium 9.6 (8.6-10.3) mg/dl Total Bilirubin 0.6 (0.2-1.0) mg/dl AST 47 H (13-39) U/L ALT 107 H (7-52) U/L Alkaline Phosphatase 80 (34-104) U/L Total Protein 6.4 (6.0-8.3) gm/dl Albumin 4.1 (3.4-5.0) gm/dl Globulin 2.3 L (2.5-4.0) gm/dl Albumin/Globulin Ratio 1.8 (0.9-2) Lipase 13 (11-82) U/L Anaplasma Smear A. phagocytophilum DNA Lyme Disease IgG Ab (Negative) Lyme IgG (Western Blot) Lyme IgG 18 kDa Band Lyme IgG 23 kDa Band Lyme IgG 28 kDa Band Lyme IgG 30 kDa Band Lyme IgG 39 kDa Band Lyme IgG 41 kDa Band Lyme IgG 45 kDa Band Lyme IgG 58 kDa Band Lyme IgG 66 kDa Band Lyme IgG 93 kDa Band Lyme IgM Ab (WB) Lyme Disease IgM Ab (Negative) Lyme IgM 23 kDa Band Lyme IgM 39 kDa Band Lyme IgM 41 kDa Band PG Care Time/CCT Total # of Minutes Spent Total Time Spent with Patient: Total time spent is greater than 50% in coordination of care (as documented) at patient's floor/unit and/or counseling patient: Coding Diagnoses
--- NOTE | 2022-07-28 14:18 | Discharge Summary ---
Date of Service July 28, 2022 Admission HPI Per Admitting Provider Lisa is a 71-year-old female with past medical history of hyperlipidemia and anxiety/depression who presented to [facility] with abdominal pain and was found to have elevated LFTs. Lipase was normal. By verbal report CT was concerning for cholecystitis without ductal dilation, gallbladder ultrasound did not show ductal dilation and was equivocal. MRCP and additional diagnostics/therapeutics were not available at [facility]. Patient was transferred to [facility] for ERCP and surgical services for treatment of suspected choledocholithiasis without pancreatic involvement. Had had intermittent RUQ pain in the past year, but generally hasn't been bad up until this past Saturday. +Vomiting even without nausea. Food worsens pain. RUQ worst, has some LUQ pain. No fevers, chills, sweats No chest pain or chest pressure. No shortness of breath/dyspnea BMs soft, brown. No black/blood. No cristopher colored stools Has mild valvular insufficiency for which she sees Dr. Jeison Dejesus Card iologyahaira w/ Dr. Tanner. No AL. No NSTEMI. No hx NSTEMI. Had back surgery for spinal stenosis w/ Dr. Navarrete in [place] last Oct, no problems. NOt on any blood thinners or aspirin like medications No renal problems/CKD No history of blood clots or bleeding Hx bowel slowdown/blockage. Not sure the cause, no prior hx of abdominal surgery. partial SBO was 20 years ago, and resolved with conservative care and no surgery. Medical History: Reviewed Medications: Reviewed Surgical History: Reviewed Family history: Reviewed. Lung cancer in mother in 70s with hx of smoking. Denies hx AL/stroke/heart disease/lung disease/thyroid disease/gallbladder disease Allergies: Reviewed. NKMA. Social History: No tobacco use, rare social ETOH use Code Status:Full code [place] lab review: AST 91, ALT 193 Lipase 53 Sodium 142 Potassium 4.0 WBC 4.6, PLT 249 High-sensitivity troponin 9 CT/ultrasound as below -CTA/P: Multiple low-density lesions of the liver measuring up to 1.7cm in size without abnormalities of the spleen. Adrenals and pancreas are within normal limits. Mild prominence of the gallbladder wall and questionable gallbladder sludge. Given the discordance between the exam and an ultrasound performed same day as well as patient's exam, recommend consideration of HIDA for further evaluation. Small pericardial effusion. Multiple hepatic cysts. -Ultrasoundabdomen limited: Impression: Multiple cysts noted in the left lobe of the liver. Exam is otherwise unremarkable. Admission Exam Per Admitting Provider General: A&Ox3. NAD. Cooperative. HEENT: Atraumatic, normocephalic. Vision/hearing grossly intact. Pulm: CTAB A&P. -wheezes, -rales, -rhonchi. Symmetrical chest rise. No increased work of breathing. No respiratory distress. Cardiac: RRR, +sm. Radial pulses intact and symmetrical. Abdominal: TTP at RUQ > LUQ, no lower abd tenderness, no guarding/rebound, abd soft. Principal Diagnosis RUQ pain, GB sludge Discharge Exam General: WD/WN female sitting up in bed, NAD HEENT: atraumatic, normocephalic, mmm, trachea midline Resp: CTA, no w/c/r, on room air CV: RRR, no significant m/r/g, no pitting edema GI: +BS, soft/NT, no rebound or guarding : no holley MSK/Neuro: no focal deficit, no slurred speech Psych: AOx3, cooperative Discharge Data Allergies Allergy/AdvReac Type Severity Reaction Status Date / Time No Known Allergies Allergy Unverified 05/26/12 14:53 Consultations 07/27/22 11:15 Consult Gastroenterology Routine Consult General Surgery Routine Procedures Performed Operation Date: 07/27/22 11:30 Actual Procedures p Esophagogastroduodenoscopy - Pooja Barnard DO s Endoscopic Ultrasonography Upper - Pooja Barnard DO Hospital Course (1) RUQ pain: Patient presented from [place] as direct admission for concerns pain RUQ w/ meals and concerns for choledocholithiasis vs cholecystitis Labs at [place] w/ elevated LFTs AST 91, ALT 193 with WBC 4.6, plt 249 CTAP showed Multiple low-density lesions of the liver measuring up to 1.7cm in size without abnormalities of the spleen. Adrenals and pancreas are within normal limits. Mild prominence of the gallbladder wall and questionable gallbladder sludge. Given the discordance between the exam and an ultrasound performed same day as well as patient's exam, recommend consideration of HIDA for further evaluation. Small pericardial effusion. Multiple hepatic cysts. Ultrasoundabdomen limited: Impression: Multiple cysts noted in the left lobe of the liver. Exam is otherwise unremarkable. Ceftriaxone x 2 days at [facility], 1 dose AM prior to transfer 07/27, given additional dose 07/28 (lyme testing -- see below, doxy at ok) GI/general surgery consulted s/p upper endoscopy and endoscopic ultrasound with Dr Barnadr 07/27. The upper endoscopy was notable for no evidence of peptic ulcer disease. The endoscopic ultrasound was notable for a normal-appearing common bile duct and pancreas. There was a small amount of sludge and minimal gallbladder wall thickening to 2.5 mm. General surgery eval AM 07/28, agreed to advance diet to clears--> low fat/no dairy and tolerated and plans for elective cholecystectomy outpatient and patient to continue low fat/no dairy at home and call office Saturday to schedule appointment. Lyme Disease Lyme IgM +, IgG negative, WB pending. Patient w/ lots of tick bites in the past, never treated for Lyme. 1st degree heart block/effusion on imaging Anaplasmosis PCR/WB pending at d/c and can have outpt f/u Decision to continue Doxy BID at d/c given such. Instructed to take w/ full glass of water to prevent GI upset. HTN losartan held prior days to admit while npo, held while NPO for EGD/EUS eval Hydralazine available prn, tolerating diet without issue and can resume meds at ok Pericardial Effusion - Mild, without hemodynamic compromise. Noted on CT-A/P from OSH - No hx chest pain, recent viral illness per pt Was going to order ECHO, but patient stable for d/c, no CP/SOB and follows Cardiology for her leaky valve, Dr. Jeison Dejesus Cardiology w/ Dr. Tanner Trop normal SORT LINE No CP/SOB, and instruted patient to f/u with her stable helper as she had echo earlier this year but unsure if trace effusion on prior imaging. Did have SR w/ 1st degree block, Lyme testing as above and doxy at ok to complete course Anxiety Well controlled, no longer on celexa HLD -- will hold statin x 2 days at d/c given LFTs, can resume following DVT proph: SCDs while inpatient, no chemoproph as was concerns for possible need for surgery. No evidence for DVT at time of exam for discharge (2) HTN (hypertension): (3) Lumbar stenosis: no issues, follows Dr Navarrete in [place] (4) Valvular insufficiency: (5) Transaminitis: improving w/ abx, continued doxy at dc for possible tick bourne illness f/u general surgery this week for elective CCY Total Time Total Time Spent Total Time Spent (In Minutes): 45 Discharge Plan Discharge Items Patient Disposition: Home - Self-Care Reason For Visit: SUSPECT [place] Discharge Diagnosis: Biliary Colic, Gallbladder Sludge Goals: You have been hospitalized for an acute medical problem. During your stay at [facility], we have made an effort to correct the problem that brought you to the hospital while keeping you as comfortable as possible. Medications were used to bring your condition under control and your discharge instructions will include directions for any medications you should take after leaving the hospital. Please make sure you see your Primary Care Provider as part of your follow up plan. Activity: As commented below Non-emergency contact: Primary Care Provider and Surgeon Call non-emergency contact if: you have any medication questions, your symptoms worsen, your pain is not controlled and you have a fever Follow-up/Referrals: Rosa Maya DO [Physician] - (office will call regrading appointment on saturday ) Arthur Jackson MD [Primary Care Provider] - Diet: Low Fat Diet Comment: NO DAIRY Addtl Attending Provider Instructions: You have been hospitalized for concerns for a bad gallbladder. GI was consulted and underwent EUS to look at the ducts which showed sludge and general surgery was consulted Dr Maya from surgery has evaluated you and we advanced your diet and you should continue a LOW FAT, NO DAIRY diet for now. Info will be provided. You should call their office at [phone] on Saturday (tomorrow) to have surgery scheduled with her this week. You had lyme testing come back possibly positive, western blot testing has been sent out and takes about a week to return. Given you were given IV ceftriaxone on admission which also treats lyme with improvement and you have never been tested in the past, we are continuing Doxycycline 100mg by mouth twice daily for 14 days. This would mean 12 more days. Please take with a FULL GLASS OF WATER to prevent any issues with irritation to the throat. Please note this medication does sometimes also cause GI upset. You should also follow up with cardiology given pericardial effusion on imaging at [place], which could be from the Lyme disease itself, but could also be a chronic finding and should be referenced to your echo from earlier this year. We are asking to hold your atorvastatin for the next 4-5 days given your elevated liver enzymes, which have been improving and can be from the gallbladder, but also from tick bourne illnessess as well. Limit Tylenol use to no more than 2000mg in a day. You can also use ibuprofen/NSAIDs for pain, do not exceed 2400mg in a 24 hour period. Please follow up with primary care in the next week to monitor your status. Please return to the ER if any worsened pain, inability to tolerate oral intake or for any other symptoms concerning for you. It has been a pleasure being a part of the medical team providing for you while you have been in the hospital. Take care! Pending Studies at Discharge: Yes Studies:: western blot testing for lyme Stand-Alone Forms: [employer], Smoking Cessation Medications and DC Order Prescriptions: New doxycycline hyclate 100 mg capsule 100 mg PO BID 12 Days Qty: 24 0RF Continued losartan 100 mg tablet 100 mg PO DAILY Held atorvastatin 40 mg tablet 40 mg PO DAILY Hold Instructions: Resume on 08/03/22. Discharge Orders: Discharge Order (Routine); Ordered 07/28/22 Ordered By: Orly Lynn/Other Patient Handouts: ED Diet, Low Fat Admission Data Admit Date/Time: 07/27/22 10:20 Attending Provider: Ferny Diego Admit Provider: Jack Byers Primary Care Provider: Arthur Jackson Other Providers: Pooja Barnard ; Rosa Maya Other Interventions: Discharge Summary Assessment (RN) Last Done: 07/28/22 15:03 Supervising Physician Co-Signing Physician Notes The patient was seen by me. The chart was reviewed. Case discussed with EFE Hsu. Agree with assessment and plan. She is medically stable for discharge Coding Level of Care Code 45352 INP/OBS DISCH >30 MIN Diagnoses RUQ pain R10.11 HTN (hypertension) I10 Lumbar stenosis M48.061 Valvular insufficiency I38 Transaminitis R74.01
[2022-07-31 03:23] LABS: 18KDIGG Band NON-REACTIVE; 23KDIGG Band NON-REACTIVE; 23KDIGM Band REACTIVE; 28KDIGG Band NON-REACTIVE; 30KDIGG Band NON-REACTIVE; 39KDIGG Band NON-REACTIVE; 39KDIGM Band NON-REACTIVE; 41KDIGG Band REACTIVE; 41KDIGM Band NON-REACTIVE; 45KDIGG Band NON-REACTIVE; 58KDIGG Band NON-REACTIVE; 66KDIGG Band NON-REACTIVE; 93KDIGG Band NON-REACTIVE; Lyme Antibodies, WB IgG NEGATIVE (NEGATIVE); Lyme Antibodies, WB IgM NEGATIVE (NEGATIVE)
== END 2022-07-28 16:21 | disposition home or self-care (01) | DRG 445 ==
LOC: 3N 10:20 → SUATTDRO 10:20